=== PATIENT | female | born 1990 | race Caucasian/White ===

== ENCOUNTER 2016-12-26 09:23 | Emergency (ER) | payer OTHER ==
[~2016-12-26 09:23] MED LIST: HUMATE P; PREDNISONE PO
== END 2016-12-26 10:06 | disposition home or self-care (01) ==
LOC: CFTX 09:23 → CED 09:23 → CFTX 10:02
DX: M67.432 Ganglion, left wrist (principal); M67.431 Ganglion, right wrist; L72.9 Follicular cyst of the skin and subcutaneous tissue, unspecified; Z88.8 Allergy status to other drugs, medicaments and biological substances
CPT/HCPCS: 99282